=== PATIENT | female | born 1975 | race Caucasian/White ===

== ENCOUNTER → 2016-12-15 | Outpatient (CLI) | payer OTHER ==
[2014-01-05 22:56] VITALS: BP 138/98
--- NOTE | 2016-12-15 10:15 | KCIC ---
CHEST PA LATERAL History: COPD, abnormal lung exam Comparison: None. Findings: There is lung hyperexpansion which may be due to emphysema. There is no dependent pleural fluid, lobar infiltrate, pneumothorax. Cardiac silhouette is within normal limits. Impression: 1. There is no infiltrate. Lung hyperexpansion may be due to emphysema. Electronically signed by: Jeffery Ho MD (12/15/2016 10:12 AM) [id number]
== END | disposition home or self-care (01) ==
LOC: KCIC 09:17
PROVIDERS: ATTEND Family Medicine
DX: J44.9 Chronic obstructive pulmonary disease, unspecified (principal)
CPT/HCPCS: 71020

== ENCOUNTER 2021-02-28 18:26 | Emergency (ER) | payer OTHER ==
[~2021-02-28] VITALS: Ht 165.1 cm; Wt 55.0 kg
[2021-02-28] MEDS ORDERED: ONDANSETRON PF 4 MG/2 ML VIAL. IVP ONE (20:45)
[2021-02-28] MEDS ORDERED: IV NORMAL SALINE 500ML BAG 500 ML IV ONE (20:45)
[2021-02-28] MEDS ORDERED: fentaNYL PF VIAL 100 MCG/2 ML VIAL IVP ONE (20:45)
[2021-02-28 20:46] LABS: BILIRUBIN,URINE SMALL (NEG); CLARITY,URINE CLEAR; COLOR,URINE AMBER; NITRITE,URINE NEGATIVE (NEG); PH,URINE 8.5 (<5.0-8.0); PROTEIN,URINE 30 mg/dL (NEG-TRACE)
[2021-02-28 20:58] LABS: BACTERIA,URINE 0 /HPF (0-FEW)
--- NOTE | 2021-02-28 21:15 | ED.ADGEN ---
Past Medical History Past Medical History: Other Additional Past Medical Histor: WPW. Past Surgical History: Hysterectomy, Other Additional Past Surgical Histo: CARDIAC ABLATION Smoking Status: Current Every Day Smoker Alcohol Use: Heavy Drug Use: None General Adult EDM: Chief Complaint: ABDOMINAL PAIN HPI: HPI: Patient is a 45 year old female with right upper quadrant abdominal pain since this morning. Patient states he is also noticed darkening urine but has not seen any jaundice. Patient has a history significant for cirrhosis due to hep C but has not been treated. As she has had some watery bowel movements but denies any blood in her stools or melena. Has had some nausea and vomiting today. States he has had multiple paracentesis in the past but does not feel distended today Review of Systems: Review of Systems: All other systems within normal limits except for as noted in the HPI Current Medications: Current Medications Medications (Trade) Dose Ordered Sig/Layne Start Time Stop Time Status Last Admin Dose Admin Fentanyl Citrate (Fentanyl 2ml Vial) 75 mcg 1X ONCE 02/28/21 20:45 02/28/21 20:46 DC 02/28/21 21:14 75 MCG Info (CONTRAST GIVEN -- Rx MONITORING) 1 each PRN DAILY PRN 02/28/21 22:00 03/02/21 21:59 Iohexol (Omnipaque 300 Mg/ml) 75 ml 1X ONCE 02/28/21 21:45 02/28/21 21:50 DC 02/28/21 21:53 75 ML Ondansetron HCl (Zofran) 4 mg 1X ONCE 02/28/21 20:45 02/28/21 20:46 DC 02/28/21 21:12 4 MG Sodium Chloride 500 ml @ 500 mls/hr 1X ONCE 02/28/21 20:45 02/28/21 21:44 DC 02/28/21 21:12 500 MLS/HR Allergies: Allergies: Allergies Coded Allergies Type Severity Reaction Last Updated Verified doxycycline Allergy Intermediate 12/22/13 Yes Physical Exam: PE: Constitutional: Well developed, well nourished, no acute distress, non-toxic appearance. [] HENT: Normocephalic, atraumatic, bilateral external ears normal, nose normal. [] Eyes: PERRLA, conjunctiva normal, no discharge. [] Neck: No rigidity, supple, no stridor. [] Cardiovascular: Regular rate and rhythm, brisk cap refill [] Lungs & Thorax: Non labored symmetric respirations, no tachypnea or respiratory distress [] Abdomen: Soft, nondistended, right upper quadrant tenderness with guarding.. Skin: Warm, dry, no erythema, no rash. [] Back: Unremarkable Extremities: No deformities, range of motion grossly intact, no lower extremity edema [] Neurologic: Alert and oriented X 3, no focal deficits noted. [] Psychologic: Affect normal, judgement normal, mood normal. [] Current Patient Data: Labs: Laboratory Tests Test 02/28/21 20:25 02/28/21 20:40 02/28/21 21:03 02/28/21 22:08 Urine Collection Type Unknown Urine Color Gala Urine Clarity Clear Urine pH 8.5 (<5.0-8.0) Urine Specific [place] 1.025 (1.000-1.030) Urine Protein 30 mg/dL (NEG-TRACE) Urine Glucose (UA) Negative mg/dL (NEG) Urine Ketones (Stick) Negative mg/dL (NEG) Urine Blood Negative (NEG) Urine Nitrite Negative (NEG) Urine Bilirubin Small (NEG) Urine Urobilinogen Dipstick 1.0 mg/dL (0.2 mg/dL) Urine Leukocyte Esterase Small (NEG) Urine RBC 1-2 /HPF (0-2) Urine WBC 1-4 /HPF (0-4) Urine Squamous Epithelial Cells Few /LPF Urine Bacteria 0 /HPF (0-FEW) Urine Mucus Mod /LPF POC Urine HCG, Qualitative Hcg negative (Negative) White Blood Count 3.8 x10^3/uL (4.0-11.0) L Red Blood Count 3.92 x10^6/uL (3.50-5.40) Hemoglobin 14.3 g/dL (12.0-15.5) Hematocrit 41.0 % (36.0-47.0) Mean Corpuscular Volume 105 fL (79-100) H Mean Corpuscular Hemoglobin 36 pg (25-35) H Mean Corpuscular Hemoglobin Concent 35 g/dL (31-37) Red Cell Distribution Width 16.5 % (11.5-14.5) H Platelet Count 28 x10^3/uL (140-400) L Neutrophils (%) (Auto) 76 % (31-73) H Lymphocytes (%) (Auto) 16 % (24-48) L Monocytes (%) (Auto) 7 % (0-9) Eosinophils (%) (Auto) 0 % (0-3) Basophils (%) (Auto) 1 % (0-3) Neutrophils # (Auto) 2.9 x10^3/uL (1.8-7.7) Lymphocytes # (Auto) 0.6 x10^3/uL (1.0-4.8) L Monocytes # (Auto) 0.3 x10^3/uL (0.0-1.1) Eosinophils # (Auto) 0.0 x10^3/uL (0.0-0.7) Basophils # (Auto) 0.0 x10^3/uL (0.0-0.2) Platelet Estimate Pending Sodium Level 143 mmol/L (136-145) Potassium Level 3.5 mmol/L (3.5-5.1) Chloride Level 106 mmol/L (98-107) Carbon Dioxide Level 26 mmol/L (21-32) Anion Gap 11 (6-14) Blood Urea Nitrogen 8 mg/dL (7-20) Creatinine 0.7 mg/dL (0.6-1.0) Estimated GFR (Cockcroft-Gault) 89.7 BUN/Creatinine Ratio 11 (6-20) Glucose Level 127 mg/dL (70-99) H Calcium Level 8.6 mg/dL (8.5-10.1) Phosphorus Level 2.7 mg/dL (2.6-4.7) Magnesium Level 1.4 mg/dL (1.8-2.4) L Total Bilirubin 3.7 mg/dL (0.2-1.0) H Direct Bilirubin 1.4 mg/dL (0.0-0.2) H Aspartate Amino Transferase (AST) 152 U/L (15-37) H Alanine Aminotransferase (ALT) 73 U/L (14-59) H Alkaline Phosphatase 147 U/L (46-116) H Troponin I High Sensitivity 8 ng/L (4-50) Total Protein 7.5 g/dL (6.4-8.2) Albumin 3.7 g/dL (3.4-5.0) Albumin/Globulin Ratio 1.0 (1.0-1.7) Lipase 100 U/L (73-393) Prothrombin Time 21.9 SEC (11.7-14.0) H Prothrombin Time INR 1.9 (0.8-1.1) H Laboratory Tests 02/28/21 21:03 Laboratory Tests 02/28/21 21:03 Vital Signs: Vital Signs Date Time Temp Pulse Resp B/P (MAP) Pulse Ox O2 Delivery O2 Flow Rate FiO2 02/28/21 21:14 18 97 Room Air 02/28/21 20:53 98.0 91 156/86 (109) 98.0 EKG: EKG: Sinus rhythm, left axis deviation, heart rate 89 bpm, no ST elevation or depression, no ectopy, normal intervals. [] Heart Score: C/O Chest Pain: No HEART Score for Chest Pain: HEART Score for Chest Pain Response (Comments) Value History Slighlty/Non-Suspicious 0 ECG Nonspecific Repolarizatio 1 Age >45 - < 65 1 Risk Factors 1 or 2 Risk Factors 1 Troponin < Normal Limit 0 Total 3 Risk Factors: Risk Factors: DM, Current or recent (<one month) smoker, HTN, HLP, family history of CAD, obesity. Risk Scores: Score 0 - 3: 2.5% MACE over next 6 weeks - Discharge Home Score 4 - 6: 20.3% MACE over next 6 weeks - Admit for Clinical Observation Score 7 - 10: 72.7% MACE over next 6 weeks - Early Invasive Strategies Radiology/Procedures: Radiology/Procedures: [facility] [address] [place] [address] IMAGING REPORT Signed PATIENT: CARLTON DEMPSEY ACCOUNT: [id number] : 1975 LOCATION: ER AGE: 45 SEX: F EXAM STATUS: REG ER ORD. PHYSICIAN: BIMAL ECHEVERRIA MD REASON: RUQ pain PROCEDURE: ABDOMEN LTD EXAM: RIGHT UPPER QUADRANT ULTRASOUND. HISTORY: Right upper quadrant pain. COMPARISON: Today's CT. FINDINGS: Sonographic evaluation of the right upper quadrant was performed. Hepatic surface nodularity is consistent with cirrhotic change. Diffuse hepatic steatosis is better appreciated on CT. The lesion along the capsule of hepatic segment [address] is not appreciated by this technique. The liver is enlarged spanning 19.8 cm. Gallstones are noted. There is a small amount of pericholecystic fluid. There is no sonographic [place] sign. The common duct measures 5 mm. The visualized portions of the head of the pancreas reveal no abnormality. The right kidney measures 11.6 cm. Cortical thickness and echogenicity are preserved. There is no hydronephrosis. The visualized portions of the abdominal aorta and inferior vena cava are grossly patent and normal in caliber. IMPRESSION: 1. Morphologic changes of cirrhosis. Hepatomegaly. 2. The hepatic lesion noted on CT is not appreciated sonographically. 3. Cholelithiasis. A small amount of pericholecystic fluid is likely secondary to liver disease rather than cholecystitis. Correlate with other data. Electronically signed by: Mynor Fountain MD (02/28/2021 11:21 PM) [id number] DICTATED and SIGNED BY: ROSEANN FOUNTAIN MD DATE: 02/28/21 [id number] [facility] [address] [place] [address] IMAGING REPORT Signed PATIENT: CARLTON DEMPSEY ACCOUNT: [id number] : 1975 LOCATION: ER AGE: 45 SEX: F EXAM STATUS: REG ER ORD. PHYSICIAN: BIMAL ECHEVERRIA MD REASON: RUQ pain PROCEDURE: CT ABD PELV W/ IV CONTRST ONLY EXAM: CT ABDOMEN/PELVIS WITH CONTRAST. HISTORY: Right upper quadrant pain. TECHNIQUE: Computed tomography of the abdomen and pelvis was performed after the intravenous administration of iodinated contrast. One or more of the following individualized dose reduction techniques were utilized for this examination: 1. Automated exposure control. 2. Adjustment of the mA and/or kV according to patient size. 3. Use of iterative reconstruction technique. COMPARISON: 12/22/2013. FINDINGS: Lung windows through the visualized portions of the bases reveal mild atelectasis. Bone windows reveal no suspicious lesions. A sclerotic lesion within the right aspect of the L3 vertebral body is consistent with a benign bone island. Hepatic surface nodularity is consistent with cirrhotic change. There is a hypoattenuating nodule along the capsule of segment 7 on image 14 measuring 2.6 x 0.9 cm. This may not be within the liver. Diffuse hepatic steatosis is at least moderate. The umbilical vein is recanalized. There are prominent splenorenal varices. The spleen is enlarged, measuring 16 cm. There is no ascites. The appendix is not inflamed. Mild colonic wall thickening may reflect colitis or portal hypertension. There is no small bowel obstruction. There are no pathologically enlarged lymph nodes. Gallstones are noted. Mild gallbladder wall thickening likely reflects liver disease. There is mild common duct dilatation at 8 mm. A small calculus is noted within the distal pancreatic duct is not dilated and there are no focal pancreatic lesions. The adrenal glands and kidneys are unremarkable. The uterus is surgically absent. Bilateral ovarian follicles are likely physiologic. Fluid density masses at the umbilicus measure up to 2.7 cm. These do not clearly communicate with the abdominal cavity. This may be ascites within the very n arrow neck hernia, or cutaneous associated lesion. They contain are immediately adjacent to umbilical varices. IMPRESSION: 1. Advanced morphologic changes of cirrhosis and portal hypertension. Moderate to severe diffuse hepatic steatosis. 2. A 2.6 cm nodule along the capsule of hepatic segment 7 appears to be external to the liver, versus a hepatic capsular lesion. MRI follow-up could be perform ed in 3 months. 3. Cystic lesions at the umbilicus measure up to 2.7 cm. These may represent ascites within a very narrow neck hernia, or cutaneous lesions. They contain or are immediately adjacent to umbilical varices. 4. Cholelithiasis. Mild biliary dilatation. Electronically signed by: Mynor Fountain MD (02/28/2021 10:12 PM) [id number] DICTATED and SIGNED BY: ROSEANN FOUNTAIN MD DATE: 02/28/21 [id number] [] Course & Med Decision Making: Course & Med Decision Making Pertinent Labs and Imaging studies reviewed. (See chart for details) I discussed findings with Dr. Chin, from general surgery. The findings on the labs and the CT imaging as well as ultrasound. Discussed that there are some concerning findings for cholecystitis that they could also be explained by her history of cirrhosis, lab work more suggestive of cirrhosis. Discussed with patient the recommendation of admission, patient is refusing admission. States she would feel more comfortable going home and calling her scheduling assistant tomorrow. Discussed strict return precautions for signs of cholecystitis. [] Dragon Disclaimer: Dragon Disclaimer: This electronic medical record was generated, in whole or in part, using a voice recognition dictation system. Departure Departure Impression: Primary Impression: Cirrhosis of liver Additional Impression: Abdominal pain Disposition: HOME / SELF CARE / HOMELESS Condition: STABLE Referrals: ERIC CHAVEZ MD (PCP) Patient Instructions: Cirrhosis Scripts Tramadol Hcl (TRAMADOL HCL) 50 Mg Tablet 50 MG PO Q6HRS PRN for PAIN for 3 Days, #12 TAB Prov: BIMAL ECHEVERRIA MD 03/01/21 Problem Qualifiers BIMAL ECHEVERRIA MD Feb 28, 2021 21:15
[2021-02-28 21:22] LABS: BASO % 1 % (0-3); EOS % 0 % (0-3); HEMOGLOBIN 14.3 g/dL (12.0-15.5); LYMPH # 0.6 x10^3/uL (1.0-4.8); LYMPH % 16 % (24-48); MEAN CORPUSCULAR HEMOGLOBIN 36 pg (25-35); MEAN CORPUSCULAR HGB CONC 35 g/dL (31-37); MEAN CORPUSCULAR VOLUME 105 fL (79-100); MONO # 0.3 x10^3/uL (0.0-1.1); MONO % 7 % (0-9); NEUT # 2.9 x10^3/uL (1.8-7.7); NEUT % 76 % (31-73); PLATELET COUNT 28 x10^3/uL (140-400); RED BLOOD COUNT 3.92 x10^6/uL (3.50-5.40); RED CELL DISTRIBUTION WIDTH 16.5 % (11.5-14.5); WHITE BLOOD COUNT 3.8 x10^3/uL (4.0-11.0)
[2021-02-28 21:32] LABS: CALCIUM 8.6 mg/dL (8.5-10.1); CREATININE 0.7 mg/dL (0.6-1.0); GFR 89.7; POTASSIUM 3.5 mmol/L (3.5-5.1)
[2021-02-28 21:39] LABS: ALBUMIN 3.7 g/dL (3.4-5.0); DIRECT BILIRUBIN 1.4 mg/dL (0.0-0.2); MAGNESIUM 1.4 mg/dL (1.8-2.4); PHOSPHORUS 2.7 mg/dL (2.6-4.7); TOTAL BILIRUBIN 3.7 mg/dL (0.2-1.0); TOTAL PROTEIN 7.5 g/dL (6.4-8.2)
[2021-02-28] MEDS ORDERED: IOHEXOL 300 MG/ML 100ML VIAL. IV ONE (21:45)
[2021-02-28] MEDS ORDERED: CONTRAST GIVEN. MC PRN (22:00)
--- NOTE | 2021-02-28 22:15 | RAD ---
EXAM: CT ABDOMEN/PELVIS WITH CONTRAST. HISTORY: Right upper quadrant pain. TECHNIQUE: Computed tomography of the abdomen and pelvis was performed after the intravenous administ ration of iodinated contrast. One or more of the following individualized dose reduction techniques w ere utilized for this examination: 1. Automated exposure control. 2. Adjustment of the mA and/or kV according to patient size. 3. Use of iterative reconstruction technique. COMPARISON: 12/22/2013. FINDINGS: Lung windows through the visualized portions of the bases reveal mild atelectasis. Bone win dows reveal no suspicious lesions. A sclerotic lesion within the right aspect of the L3 vertebral bod y is consistent with a benign bone island. Hepatic surface nodularity is consistent with cirrhotic change. There is a hypoattenuating nodule edward ng the capsule of segment 7 on image 14 measuring 2.6 x 0.9 cm. This may not be within the liver. Dif fuse hepatic steatosis is at least moderate. The umbilical vein is recanalized. There are prominent s plenorenal varices. The spleen is enlarged, measuring 16 cm. There is no ascites. The appendix is not inflamed. Mild colonic wall thickening may reflect colitis or portal hypertension . There is no small bowel obstruction. There are no pathologically enlarged lymph nodes. Gallstones are noted. Mild gallbladder wall thickening likely reflects liver disease. There is mild c ommon duct dilatation at 8 mm. A small calculus is noted within the distal pancreatic duct is not dil ated and there are no focal pancreatic lesions. The adrenal glands and kidneys are unremarkable. The uterus is surgically absent. Bilateral ovarian f ollicles are likely physiologic. Fluid density masses at the umbilicus measure up to 2.7 cm. These do not clearly communicate with the abdominal cavity. This may be ascites within the very narrow neck hernia, or cutaneous associated le meghann. They contain are immediately adjacent to umbilical varices. IMPRESSION: 1. Advanced morphologic changes of cirrhosis and portal hypertension. Moderate to severe diffuse hepa tic steatosis. 2. A 2.6 cm nodule along the capsule of hepatic segment 7 appears to be external to the liver, versus a hepatic capsular lesion. MRI follow-up could be performed in 3 months. 3. Cystic lesions at the umbilicus measure up to 2.7 cm. These may represent ascites within a very na rrow neck hernia, or cutaneous lesions. They contain or are immediately adjacent to umbilical varices . 4. Cholelithiasis. Mild biliary dilatation. Electronically signed by: Mynor Fountain MD (02/28/2021 10:12 PM) [id number]
[2021-02-28 22:22] LABS: PROTHROMBIN TIME PATIENT 21.9 SEC (11.7-14.0)
--- NOTE | 2021-02-28 22:40 | EKG ---
[facility] [address] [place] [address] Test Date: 2021-02-28 Test Time: 20:46:14 Pat Name: CARLTON DEMPSEY Department: Room: Gender: F Reconcilement Clerk: : 1975 Requested By: BIMAL ECHEVERRIA Order Number: [id number] Reading MD: Chavo Morillo Measurements Intervals [place] Rate: 89 P: 90 ME: 152 QRS: -15 QRSD: 88 T: 55 QT: 414 QTc: 505 Interpretive Statements SINUS RHYTHM LEFTWARD AXIS PROLONGED QT Electronically Signed On 03-01-2021 14:19:00 APPRENTICE COSMETOLOGIST by Chavo Morillo
--- NOTE | 2021-02-28 23:23 | RAD ---
EXAM: RIGHT UPPER QUADRANT ULTRASOUND. HISTORY: Right upper quadrant pain. COMPARISON: Today's CT. FINDINGS: Sonographic evaluation of the right upper quadrant was performed. Hepatic surface nodularity is consistent with cirrhotic change. Diffuse hepatic steatosis is better a ppreciated on CT. The lesion along the capsule of hepatic segment [address] is not appreciated by this technique. The liver is enlarged spanning 19.8 cm. Gallstones are noted. There is a small amount of pericholecystic fluid. There is no sonographic Joe y sign. The common duct measures 5 mm. The visualized portions of the head of the pancreas reveal no abnormality. The right kidney measures 11.6 cm. Cortical thickness and echogenicity are preserved. There is no hyd ronephrosis. The visualized portions of the abdominal aorta and inferior vena cava are grossly patent and normal i n caliber. IMPRESSION: 1. Morphologic changes of cirrhosis. Hepatomegaly. 2. The hepatic lesion noted on CT is not appreciated sonographically. 3. Cholelithiasis. A small amount of pericholecystic fluid is likely secondary to liver disease rathe r than cholecystitis. Correlate with other data. Electronically signed by: Mynor Fountain MD (02/28/2021 11:21 PM) [id number]
[2021-03-01 00:32] LABS: PLT ESTIMATE DECREASED (ADEQUATE)
[2021-03-01] MEDS ORDERED: TRAM50TA PO (00:38)
[2021-03-01] MEDS ORDERED: fentaNYL PF VIAL 100 MCG/2 ML VIAL IVP ONE (00:45)
[2021-03-01 02:20] VITALS: BP 141/65
== END 2021-03-01 01:49 | disposition home or self-care (01) ==
LOC: ER 18:26
DX: K74.60 Unspecified cirrhosis of liver (principal); F17.200 Nicotine dependence, unspecified, uncomplicated; Z90.710 Acquired absence of both cervix and uterus; F10.20 Alcohol dependence, uncomplicated; Y90.9 Presence of alcohol in blood, level not specified; Z88.1 Allergy status to other antibiotic agents
CPT/HCPCS: 36415; 74177; 76705; 80053; 81001; 81025; 82248; 83690; 83735; 84100; 84484; 85025; 85610; 87086; 93005; 96361; 96374; 96375; 96376; 99285; J2405; J3010; J7040; Q9967